=== PATIENT | male | born 1955 | race African-American/Black ===

== ENCOUNTER 2019-01-27 12:46 | Emergency (ER) | payer MEDICAID ==
[~2019-01-27] VITALS: Ht 172.7 cm; Wt 72.7 kg
[2019-01-27] MEDS ORDERED: BACITRACIN 0.9 GM PACKET OINTMENT TP ONE (14:15)
[2019-01-27 14:30] VITALS: BP 118/66
== END 2019-01-27 14:44 | disposition home or self-care (01) ==
LOC: EMS 12:47
DX: L08.9 Local infection of the skin and subcutaneous tissue, unspecified (principal)